=== PATIENT | male | born 1965 | race Caucasian/White ===

== ENCOUNTER 2020-10-06 09:00 | Outpatient (CLI) | payer BC, SELFPAY ==
--- NOTE | ~2020-10-06 | CT_ITS ---
EXAMINATION: CT soft tissue neck wo con EXAM DATE: 10/06/2020 09:41 INDICATION: Obstruction right parotid duct. TECHNIQUE: Spiral CT of the neck was performed without contrast. Axial, coronal and sagittal images were reviewed. The dose-length product (DLP) for this examination was 632.72 mGy-cm. The exposure was tailored according to patient size (auto mA exposure control), and iterative reconstruction (ASIR ) was used as additional dose reduction technique. There is no prior study for comparison. FINDINGS: There is a 3.5 mm right parotid calcification in the superficial lobe anteriorly, could be a duct stone, appears to be in the expected path the parotid duct. The right parotid gland appears sm aller and less fatty infiltration than the contralateral side, could be result of this chronic obstru ction. Difficult to completely exclude infiltrative mass. Submandibular glands are unremarkable. The thyroid gland is unremarkable. There is no cervical lymp hadenopathy. There are no masses identified. The superior mediastinum is unremarkable. The airw ay is unremarkable. Parapharyngeal and pre-glottic fat planes are preserved. Limited evaluation o f cervical vessels on this noncontrast study. The orbits are unremarkable. Trace right mastoid ef fusion and mild right maxillary sinus mucoperiosteal thickening. Lung apices are unremarkable. ther e is advanced left-sided upper cervical facet arthropathy and lower cervical disc disease. IMPRESSION: Right sialolithiasis, mild right parotid atrophy and increased density compared to contr alateral side. Reviewed, dictated and finalized at location A. IMPRESSION: Right sialolithiasis, mild right parotid atrophy and increased den sity compared to contralateral side.
== END 2020-10-06 09:01 | disposition home or self-care (01) ==
PROVIDERS: PCP Internal Medicine; Visit Provider Internal Medicine
DX: K11.8 Other diseases of salivary glands (principal)
CPT/HCPCS: 70490